=== PATIENT | female | born 1975 | race Two or more races ===

== ENCOUNTER 2019-08-09 09:45 | Inpatient (IN) | payer OTHER ==
[~2019-08-09] VITALS: Ht 172.7 cm; Wt 104.3 kg
[2019-09-05] MEDS ORDERED: MIRALAX17 GM PO (11:56)
[2019-09-05] MEDS ORDERED: TYLENOL ARTHRI650 MG PO (11:56)
[2019-09-05] MEDS ORDERED: NEURONTIN300 MG PO (11:56)
[2019-09-05] MEDS ORDERED: ULTRAM50 MG PO (11:56)
[2019-09-08] MEDS ORDERED: MORGIDOX100 MG PO (11:10)
[2019-09-08] MEDS ORDERED: INTESTINEX680 M1 PO (11:11)
== END 2019-09-08 12:11 | disposition home or self-care (01) | DRG 337 ==
LOC: SURG 09-01 07:15 → O/R 09-01 11:45 → SURG 09-01 11:45 → SURH 09-01 19:15 → SURG 09-01 21:39
PROVIDERS: ADMIT Surgery
PROC: 0DNW4ZZ Release Peritoneum, Percutaneous Endoscopic Approach (ICD-10-PCS; 2019-09-01)
PROC: 0WUF4JZ Supplement Abdominal Wall with Synthetic Substitute, Percutaneous Endoscopic Approach (ICD-10-PCS; 2019-09-01)
PROC: 0KXL0Z6 Transfer Left Abdomen Muscle, Transverse Rectus Abdominis Myocutaneous Flap, Open Approach (ICD-10-PCS; 2019-09-01)
PROC: 0KXK0Z6 Transfer Right Abdomen Muscle, Transverse Rectus Abdominis Myocutaneous Flap, Open Approach (ICD-10-PCS; 2019-09-01)
PROC: 0WUF4JZ Supplement Abdominal Wall with Synthetic Substitute, Percutaneous Endoscopic Approach (ICD-10-PCS; principal; 2019-09-02)
PROC: 4A033R1 Measurement of Arterial Saturation, Peripheral, Percutaneous Approach (ICD-10-PCS; 2019-09-03)
DX: K43.0 Incisional hernia with obstruction, without gangrene (principal); K66.0 Peritoneal adhesions (postprocedural) (postinfection); K42.9 Umbilical hernia without obstruction or gangrene; E66.9 Obesity, unspecified
CPT/HCPCS: 71275